=== PATIENT | female | born 1970 | race Caucasian/White ===

== ENCOUNTER 2017-11-28 12:40 | Emergency (ER) | payer OTHER ==
[2017-11-28 12:52] VITALS: BP 121/71
--- NOTE | 2017-11-28 13:33 | RAD ---
Indication: Fall on outstretched hand. 4 views of the left hand are reviewed. There is no fracture or dislocation. There is old ununited fracture of the ulnar styloid process. IMPRESSION: No fracture of the left hand is noted.
--- NOTE | 2017-11-28 13:35 | UC ---
Hand/Wrist HPI - HPI Summary HPI Summary: Patient has left hand pain after falling yesterday on the step that she did not see. - History Of Current Complaint Chief Complaint: UCUpperExtremity Stated Complaint: HAND INJURY Time Seen by Provider: 11/28/17 12:56 Hx Obtained From: Patient Hx Last Menstrual Period: 11/06/17 ?: No Mechanism Of Injury: Foosh Onset/Duration: Sudden Onset, Lasting Days - 1 Severity Initially: Moderate Severity Currently: Moderate Pain Intensity: 6 Pain Scale Used: 0-10 Numeric Character Of Pain: Aching, Throbbing Aggravating Factor(s): Movement Alleviating Factor(s): Nothing Associated Signs And Symptoms: Positive: Bruising Related History: Dominant Hand Right - Allergies/Home Medications Allergies/Adverse Reactions: Allergies Allergy/AdvReac Type Severity Reaction Status Date / Time codeine Allergy Nausea And Verified 11/28/17 12:58 Vomiting Penicillins Allergy See Comment Verified 11/28/17 12:58 Home Medications: Home Medications Melatonin 1 mg PO BEDTIME PRN 11/28/17 [History Confirmed 11/28/17] PMH/Surg Hx/FS Hx/Imm Hx Previously Healthy: No Psychological History: Anxiety - Surgical History Surgical History: Yes Surgery Procedure, Year, and Place: TOSILECTOMY. LEEP PROCEDURE. Rt BREAST BIOPSY - W/CLIP - Family History Known Family History: Positive: None - Social History Occupation: Employed Full-time Lives: With Family Alcohol Use: Rare Substance Use Type: None Smoking Status (MU): Never Smoked Tobacco Review of Systems Constitutional: Negative Skin: Negative Eyes: Negative ENT: Negative Respiratory: Negative Cardiovascular: Negative Gastrointestinal: Negative Genitourinary: Negative Motor: Negative Neurovascular: Negative Musculoskeletal: Arthralgia - Left hand just below the third finger Neurological: Negative Psychological: Negative Is Patient Immunocompromised?: No All Other Systems Reviewed And Are Negative: Yes Physical Exam Triage Information Reviewed: Yes Appearance: Well-Appearing, No Pain Distress, Well-Nourished Vital Signs: Initial Vital Signs Temp 99.0 F 11/28/17 12:46 Pulse 81 11/28/17 12:46 Resp 16 11/28/17 12:46 BP 121/71 11/28/17 12:46 Pulse Ox 99 11/28/17 12:46 Vital Signs Reviewed: Yes Eye Exam: Normal Eyes: Positive: Conjunctiva Clear ENT Exam: Normal ENT: Positive: Normal ENT inspection, Hearing grossly normal. Negative: Muffled voice, Hoarse voice, Dental tenderness Dental Exam: Normal Neck exam: Normal Neck: Positive: Supple, Nontender Respiratory Exam: Normal Respiratory: Positive: Chest non-tender, No respiratory distress, No accessory muscle use Cardiovascular Exam: Normal Cardiovascular: Positive: RRR, Pulses Normal, Brisk Capillary Refill Musculoskeletal Exam: Other Musculoskeletal: Positive: Strength Intact, ROM Intact, No Edema, Other: - Pain to palpation in the distal left third metacarpal neuromotor circulation intact distally Neurological Exam: Normal Neurological: Positive: Alert, Muscle Tone Normal Psychological Exam: Normal Skin Exam: Normal Diagnostics - Radiology No standard instances Xray Interpretation: No Acute Changes Radiology Interpretation Completed By: ED Physician, Radiologist Re-Evaluation - Re-Evaluation First Eval Change: Improved - Vishnu wrap applied patient reports increased comfort neuro motor and circulation intact distally before and after application Hand/Wrist Course/Dx - Course Course Of Treatment: Rest ice elevation, Tylenol ibuprofen, Vishnu wrap when necessary for pain, follow with PCP as needed - Differential Dx/Diagnosis Provider Diagnoses: Left hand contusion Discharge - Sign-Out/Discharge Documenting (check all that apply): Discharge - Discharge Plan Condition: Stable Disposition: HOME Patient Education Materials: Ibuprofen (By mouth), Contusion in Adults (ED), R.I.C.E. Treatment (ED) Referrals: Mackenzie Walsh MD [Primary Care Provider] - If Needed - Billing Disposition and Condition Condition: STABLE Disposition: HOME
== END 2017-11-28 13:24 | disposition home or self-care (01) ==
LOC: UCEAST 12:40
DX: S60.222A Contusion of left hand, initial encounter (principal); W10.2XXA Fall (on)(from) incline, initial encounter; Y93.9 Activity, unspecified; Y92.9 Unspecified place or not applicable; F41.9 Anxiety disorder, unspecified; Z88.5 Allergy status to narcotic agent; Z88.0 Allergy status to penicillin
CPT/HCPCS: 99212; G0463

== ENCOUNTER → 2018-07-29 10:00 | Day surgery (SDC) | payer OTHER ==
--- NOTE | 2018-07-23 17:38 | HP ---
PREOPERATIVE HISTORY AND PHYSICAL: DATE OF ADMISSION/SURGERY: 07/29/18 DATE OF OFFICE VISIT: 07/23/18 ATTENDING SURGEON: Blanca Aguilar MD * (DICTATED BY LAURA VELEZ) PROCEDURE: Right shoulder arthroscopic labral repair. CHIEF COMPLAINT: Right shoulder. HISTORY OF PRESENT ILLNESS: Mckayla is a 48-year-old female who presents to the clinic for right shoulder pain and instability due to a labral tear. She has failed conservative measures and therefore agreed to undergo a right shoulder arthroscopic labral repair with Dr. Aguilar on 07/29/18. PAST MEDICAL HISTORY: Migraines, history of cervical cancer. PAST SURGICAL HISTORY: LEEP. The patient denies prior anesthesia. MEDICATIONS: 1. Frova 2.5 mg 1 by mouth as needed for migraines. 2. Magnesium 600 mg 2 tabs at night. 3. Calcium and vitamin D 2 by mouth during the day. 4. Excedrin Migraine as needed. 5. Ibuprofen 200 mg as needed. 6. Aleve 220 mg 2 tabs as needed for pain. ALLERGIES: CODEINE, AMOXICILLIN. FAMILY HISTORY: Positive for cancer, hypertension. SOCIAL HISTORY: She is a psychologist. She denies tobacco use. She reports occasional alcohol consumption. She exercises regularly. She is right-hand dominant. REVIEW OF SYSTEMS: A 14-point review of systems was reviewed with the patient. Positive for current complaint, otherwise negative. Denies fevers, chills, chest pain, shortness of breath, history of bleeding disorder, history of DVT or PE. PHYSICAL EXAMINATION GENERAL: A 48-year-old well-developed, well-nourished female, in no acute distress. VITAL SIGNS: Height 65, weight 130, pulse 76, blood pressure 100/62, respiratory rate 18, temperature 98.4, BMI 21.6. HEENT: Normocephalic, atraumatic. PERRLA. Throat: Clear. NECK: Supple. PULMONARY: Lungs are clear to auscultation bilaterally. No wheezing, rhonchi, or rales. CARDIO: Regular rate and rhythm. S1, S2. No murmurs, gallops, or rubs. No edema. ABDOMEN: Positive bowel sounds, soft, nontender. NEURO: Alert and oriented x3. Cranial nerves grossly intact. Sensation is intact to light touch. MUSCULOSKELETAL: Right upper extremity, skin is intact. No warmth or erythema. Forward flexion, abduction to 180, external rotation to 75, internal rotation to T8. +4/5 strength to rotator cuff testing with pain. +2 radial pulse. Sensation is intact to light touch distally. DIAGNOSTIC STUDIES: MR arthrogram revealed an anterior labral tear with a small bony Bankart lesion with some shoulder arthritis and a small area of the rotator cuff, there is a possible full thickness tear of the supraspinatus tendon. IMPRESSION: Right shoulder labral tear. PLAN: The patient is scheduled to undergo right shoulder arthroscopic labral repair with Dr. Aguilar on 07/29/18. She will follow up 10 to 14 days postop for followup and suture removal. Percocet will be used for postoperative pain management. LAURA VELEZ [id number]/[facility] #: [id number] [facility] CENTERYadira
[~2018-07-29 10:00] MED LIST: Acetaminophen PED LIQ* 160 MG/5 ML UDC ONE; Buffered Lidocaine 0.9% SYRIN* 5 ML/SYR SYRINGE INTRADERM ONE; Clindamycin 900 MG/D5W BAG(*) 900 MG/50 ML BAG IVPB ONE; Dexamethasone IV* 4 MG/ML 1 ML (4 MG) IV SLOW PU ONE; Dexamethasone IV* 4 MG/ML 1 ML (4 MG) ONE; DiMENhydriNATE IV* 50 MG/ML VIAL IV PUSH PRN; DiMENhydriNATE IV* 50 MG/ML VIAL ONE; EPHEDrine (Pressors)* 50 MG/ML VIAL ONE; Famotidine IV* 10 MG/ML 2 ML (20 mg) IV ONE; Famotidine IV* 10 MG/ML 2 ML (20 mg) ONE; Glycopyrrolate IV* 0.2 MG/ML 1 ML VIAL ONE; HYDROcodone/ACETAMIN 5-325 MG* 1 TAB PO PRN; Ketorolac INJ* 30 MG/ML 1 ML VIAL IV PRN; Ketorolac INJ* 30 MG/ML 1 ML VIAL ONE; Lactated Ringers 1000 ML Bag* 1,000 ML IV SCH; Lidocaine 2% PF * 5 ML VIAL ONE; Midazolam* 1 MG/ML 5 ML VIAL (5 MG) ONE; Naloxone* 0.4 MG/ML 1 ML VIAL IV PRN; Neostigmine Methylsulfate* 1 MG/ML 10 ML VIAL (1 mg/ml) ONE; Ondansetron INJ* 2 MG/ML VIAL ONE; PROCHLORPERAZINE INJ 5 MG/ML 2 ML VIAL ONE; Propofol* 10 MG/ML 20 ML BTL ONE; ROPIVACAINE 5 MG/ML 30 ML BTL (0.5%) ONE; Rocuronium* 10 MG/ML VIAL ONE; Ropivacaine* 2 MG/ML 20 ML VIAL (0.2%) ONE; fentaNYL* 50 MCG/ML 2 ML VIAL (100 MCG VIAL) IV PRN; fentaNYL* 50 MCG/ML 2 ML VIAL (100 MCG VIAL) ONE; oxyCODONE/Acetamin 5/325 MG* TAB PO PRN
[2018-07-29 15:02] VITALS: BP 114/73
--- NOTE | 2018-08-09 00:10 | OP ---
CC: PCP OPERATIVE REPORT: DATE OF OPERATION: 07/29/18 DATE OF : 66 SURGEON: Blanca Aguilar MD PERSONAL TRAINER: LAURA Pardo. ANESTHESIA: General, interscalene block. PRE-OP DIAGNOSIS: Right shoulder recurrent instability. POST-OP DIAGNOSIS: Right shoulder recurrent anterior instability with mild chondrosis, as well as high-grade partial thickness tearing of the rotator cuff. OPERATIVE PROCEDURE: Right shoulder arthroscopy with: 1. Extensive glenohumeral debridement including chondroplasty. 2. Anterior labral repair. 3. Decompression with acromioplasty. 4. Rotator cuff repair using Regeneten patch. COMPLICATIONS: None. ESTIMATED BLOOD LOSS: Minimal. IMPLANTS USED: Three 2.9 Bioraptors and 1 medium size Regeneten patch. INDICATIONS: Mckayla Garcia is a 48-year-old female who has had a multiple-year history of recurrent instability. She has never had it surgically treated due to fear. She also has some persistent pain in the shoulder that is going on for the last few months. She has failed conservative management including physical therapy, anti-inflammatories, ice and heat. She has minimal chondral changes and a decision was made to repair her labrum due to persistent instability. Risks and benefits were discussed at length included, but not limited to, bleeding, infection, damage to nerves, vessels, surrounding structures, wound nonhealing, persistent pain, need for further surgery, scarring, stiffness, incomplete relief of symptoms, risks of anesthesia. DESCRIPTION OF PROCEDURE: The patient was greeted in the preoperative area by the attending surgeon. Correct extremity was marked and consent was confirmed. The patient underwent interscalene nerve block after which she was brought back to the operating suite, where she was placed in supine on the operating table. She underwent general anesthesia, endotracheal intubation, after which she was placed in the left lateral decubitus position with an axillary roll. All bony prominences were padded. She was secured with pegboard. The right shoulder was prepped and draped in the usual sterile fashion beginning with chlorhexidine soap, scrub, and alcohol wipe, and a final prep with ChloraPrep. After appropriate surgical pause indicating site, side, procedure, and administration of antibiotics, the standard posterolateral portal was made sharply with an 11-blade. The scope was introduced into the joint. The humeral head had grade 0 to 1 changes of glenoid with evidence of small areas of grade 3 changes with unstable flaps most anteriorly with labral tear. The remainder had grade 1 and 2 changes. The superior labrum appeared to be intact. The biceps did not have a lot of synovitis, but there was high-grade partial thickness tearing of the supraspinatus tendon. This was evident also on the MRI, but it looked much minor, more like tendinosis, but this is a high- grade partial thickness tear. The subscapularis was intact. At this point, the head was subluxed anteriorly. There was a moderate size Hill-Sachs deformity, almost looked like 2 Hill-Sachs deformities, and again the head was subluxed anteriorly. The more typical Hill- Sachs did not appear engaging, but she appeared to have a second area, which still had cartilage on it. The low anterior portal was then made through needle localization. An 8.5 mm cannula was placed under arthroscopic visualization. The second cannula, approximately 5 mm cannula, was placed more superiorly in interval to allow for suture shuttling. At this point, the elevator was used to remove the labrum, which appeared to be okay, slightly poor quality. This was released off the glenoid and extended to the capsule to allow for also capsular repair. The capsule was then carefully rasped as well. The glenoid was also rasped and allowed for bony bleeding bed using shaver. The ball rasp and double-sided rasp were used to help. All loose debris was removed from this portion. At this point, anchor placement began, beginning inferiorly. First anchor was placed at the 5:30 position, bone quality was okay. The anchor was placed with good purchase. The suture was then passed through the tendon in a horizontal mattress configuration, grabbing the capsule as well as the labrum, initially beginning inferiorly and passing to superiorly. This again was passed in a horizontal mattress configuration and tied down using arthroscopic knot tying technique. Once this was placed, it helped to eliminate some of drive- through sign and distraction. The Lateral Reinaldo was decreased somewhat. A second anchor was then placed at the 4:30 position and the sutures were passed in a horizontal mattress configuration again. This was then tied down using arthroscopic knot tying technique. A third anchor was placed in the 3:30 position and passed in a simple fashion and tied down, which helped to eliminate drive- through sign and head sitting more centrally. A small chondroplasty was done of the glenoid at the arthritic portion with unstable flaps. Attention was then directed to the subacromial space. With the scope positioned in the subacromial space, lateral portal was made in an outside-in fashion. A shaver was used to debride back the bursa that was present. The undersurface of the acromion was then visualized, skeletonized using electrocautery device and a 4-0 oval charlene was used to do an acromioplasty. All loose debris was removed. At this point the cuff was probed and found to be intact, but somewhat soft where the partial tear was, that had been previously marked using an 0 PDS suture. At this point, the decision was made use Regeneten patch due to high-grade partial thickness tear. A medium-sized Regeneten patch was brought to the field and through a separate stab incision a cannula was placed to allow for placement of the tendon jackie. The tendon jackie were placed with good purchase. The graft was secured and medially the bone jackie were then placed with excellent purchase. Final images were obtained. The wounds were copiously irrigated with sterile saline. Portals were closed with 3-0 nylon. Sterile dressings were applied as well as Cryo/Cuff and UltraSling. She was awoken from anesthesia and transferred to PACU in stable condition. POSTOPERATIVE PLAN: She will be nonweightbearing. She will be in a sling for 4 to 5 weeks. She will be discharged on pain medication. DVT prophylaxis was considered, but deferred due to no previous personal or family history. I will see the patient back in 10 to 14 days. [id number]/[facility] #: [id number] CHUY
== END | disposition home or self-care (01) ==
LOC: OR 10:00
PROVIDERS: ATTEND Orthopaedic Surgery
DX: M25.311 Other instability, right shoulder (principal); M75.101 Unspecified rotator cuff tear or rupture of right shoulder, not specified as traumatic; G89.18 Other acute postprocedural pain; Z85.41 Personal history of malignant neoplasm of cervix uteri; G43.909 Migraine, unspecified, not intractable, without status migrainosus
CPT/HCPCS: 81025; A9270-GY; C1713; J0780; J1100; J1240; J1885; J2250; J2405; J2704; J2710; J2795; J3010